=== PATIENT | male | born 1995 | race Caucasian/White ===

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

== ENCOUNTER 2017-06-01 18:53 | Emergency (ER) | payer OTHER ==
[2017-06-01 19:49] VITALS: BP 132/74
== END 2017-06-01 19:49 | disposition home or self-care (01) ==
LOC: ED 18:53
DX: B34.9 Viral infection, unspecified (principal); J20.9 Acute bronchitis, unspecified
CPT/HCPCS: 87804